=== PATIENT | male | born 1970 | race Caucasian/White ===

== ENCOUNTER → 2017-09-21 10:35 | Day surgery (SDC) | payer MEDICARE, MEDICAID ==
[~2017-09-21 10:35] MED LIST: Diazepam TAB(*) 5 MG ONE; Flumazenil* 0.1 MG/ML 5 ML MDV ONE; Heparin 2 UNITS/ML IVPREMIX* 2,000 ML IV ONE; Heparin(*) 1000 UNIT/ML 10 ML VIAL CATH LAB IV ONE; Iohexol 350 (CONTRAST) 200 ML MDV IV ONE; Lidocaine 1% INJ* 10 MG/ML 30 ML SDV ONE; Midazolam* 1 MG/ML 5 ML VIAL (5 MG) ONE; Naloxone* 0.4 MG/ML 1 ML VIAL ONE; diPHENhydraMINE PO* 25 MG ONE; fentaNYL* 50 MCG/ML 2 ML VIAL (100 MCG VIAL) ONE; nitroGLYCERIN DRIP* 0 MCG/0 ML BTL ONE
--- NOTE | 2017-09-22 00:36 | CATH ---
CC: Dr. Corey Lee; Dr. Jose Aguilera * PERIPHERAL INTERVENTIONAL REPORT: DATE OF PROCEDURE: 09/21/17 - [facility] CATH PRIMARY CARE PHYSICIAN: Jose Aguilera DO COMMUNITY RELATIONS SPECIALIST: Corey Lee DO PROCEDURE: Right common femoral artery access, left subclavian artery angiography, DCB angioplasty, left subclavian artery 7 x 14 mm, Angio-Seal right common femoral artery. HISTORY: A 47-year-old smoker with previous coronary intervention, previous left common iliac artery intervention and 1 year ago, stenting of the left subclavian artery origin, which was occluded with placement of a 7 x 27 balloon expandable stent. He now has restenosis. PROCEDURE ACCESS: Right common femoral artery sheath 6F, diagnostic catheter 6F R4, which was used to image the left subclavian artery, selectively. Injection was performed at the origin of the subclavian. A long [employer] wire was then positioned in the left brachial artery, the 6-Dominican sheath exchange for a 7 x 90 sheath, which was positioned at the left subclavian origin. A 7 x 40 impact DCB was inflated 10 atmosphere for 180 seconds in the left subclavian stent. It protruded in each direction. After angiographic assessment, the right common femoral artery was closed with Angio-Seal. HEMODYNAMICS: Initial BP 110/67, final 111/67. ANGIOGRAPHY: Right common femoral artery. Sheath entry is in segment 2, there is no stenosis. The visualized external iliac has minor irregularity, but no significant stenosis, the origin of the SFA and profunda are patent, the common femoral has no stenosis. Left subclavian artery. It was injected with 6 FR4 catheter at the origin at the previously placed stent, demonstrates fairly diffuse in-stent restenosis up to 70%, does not involve the left vertebral origin. Remainder of the visualized subclavian is normal. After DCB, there is full and complete expansion of the DCB balloon, there is no residual stenosis, no dissection, normal antegrade flow. CONCLUSION: 1. In-stent restenosis, left subclavian artery, excellent angiographic result with 7 mm x 40 mm DCB angioplasty. 2. Successful Angio-Seal right common femoral artery. [id number] #: [id number] [facility]
== END | disposition home or self-care (01) ==
LOC: CHICATH 10:35
PROVIDERS: ATTEND Internal Medicine Cardiovascular Disease
DX: I70.298 Other atherosclerosis of native arteries of extremities, other extremity (principal); I25.10 Atherosclerotic heart disease of native coronary artery without angina pectoris; I25.2 Old myocardial infarction; Z95.5 Presence of coronary angioplasty implant and graft; Z72.0 Tobacco use; I10 Essential (primary) hypertension; E03.9 Hypothyroidism, unspecified; E78.5 Hyperlipidemia, unspecified; R73.9 Hyperglycemia, unspecified; E79.0 Hyperuricemia without signs of inflammatory arthritis and tophaceous disease
CPT/HCPCS: 99156; 99157; A9270-GY; C1760; C1769; C1887; C2623; J1644; J2250; J2310; J3010

== ENCOUNTER 2018-10-01 10:24 | Emergency (ER) | payer MEDICARE, MEDICAID ==
[2018-10-01 10:56] LABS: Influenza A Molecular NEGATIVE (Negative); Influenza B Molecular NEGATIVE (Negative)
[2018-10-01 12:22] LABS: ABS Basophils 0.1 10^3/ul (0-0.2); ABS Eosinophils 0.1 10^3/ul (0-0.6); ABS Lymphocytes 4.1 10^3/ul (1.0-4.8); ABS Monocytes 0.8 10^3/ul (0-0.8); ABS Neutrophils 3.1 10^3/ul (1.5-7.7); ABS Nucleated RBC 0 10^3/ul; Eosinophil % 1.2 %; Hematocrit 43 % (42-52); Hemoglobin 14.9 g/dl (14.0-18.0); Lymphocyte % 50.4 %; Mean Corpuscular HGB Conc 34 g/dl (31-36); Mean Corpuscular Hemoglobin 29 pg (27-31); Mean Corpuscular Volume 84 fL (80-94); Mean Platelet Volume 7.9 fL (7.4-10.4); Nucleated Red Blood Cells % 0.1; Platelet Count 200 10^3/ul (150-450); Red Blood Count 5.15 10^6/ul (4.00-5.40); Red Cell Distribution Width 15 % (10.5-15); White Blood Count 8.1 10^3/ul (3.5-10.8)
[2018-10-01 12:43] LABS: Albumin/Globulin Ratio 1.4 (1-3); BUN/Creatinine Ratio 8.4 (8-20); C Reactive Protein 3.99 mg/L (<8.01); Calcium 9.5 mg/dL (8.6-10.3); EGFR African American 118.7 (>60); EGFR Non-African American 98.1 (>60); Globulin 2.9 g/dL (2-4); Potassium 4.1 mmol/L (3.5-5.0); Total Bilirubin 0.3 mg/dL (0.2-1.0); Total Protein 6.9 g/dL (6.4-8.9)
--- NOTE | 2018-10-01 12:48 | ED ---
HPI Chest Pain - HPI Summary HPI Summary: Patient is a 48 y/o M presenting to ED with complaints of chest pain, SOB, cough , chills and body aches. No fever reported. Cough is intermittently productive. He states that he has had cold Sx a week before 09/13/18, Sx have worsened since onset. Acid Loader recommended he come to ED to rule out PNA. Patient smokes a few cigarettes daily. Hx of PA, thyroid disease is reported. FMHx of HTN, diabetes. Patient is on Plavix. On triage, pain is rated 6/10, nothing is noted to aggravate/alleviate Sx. Home medications and allergies are reviewed. - History of Current Complaint Chief Complaint: EDGeneral Time Seen by Provider: 10/01/18 10:35 Hx Obtained From: Patient Onset/Duration: Started Weeks Ago - cold Sx onset a week before 09/13/18, Still Present, Worse Since Timing: Constant, Lasting Weeks - cold Sx onset a week before 09/13/18 Current Severity: Moderate - 6/10 Pain Intensity: 6 Pain Scale Used: 0-10 Numeric - 6/10 Aggravating Factor(s): Nothing Alleviating Factor(s): Nothing Associated Signs and Symptoms: Positive: Chest Pain, Shortness of Breath, Chills , Cough, Productive Cough, Other: - POSITIVE - BODY ACHES. Negative: Fever - Additional Pertinent History Primary Care Physician: LALO - Allergy/Home Medications Allergies/Adverse Reactions: Allergies Allergy/AdvReac Type Severity Reaction Status Date / Time NSAIDS (Non-Steroidal Allergy Unknown Verified 10/01/18 10:45 Anti-Inflamma Reaction Details omeprazole Allergy GI Upset Verified 10/01/18 10:44 pregabalin [From Lyrica] Allergy Slurred Verified 10/01/18 10:44 Speech PMH/Surg Hx/FS Hx/Imm Hx Endocrine/Hematology History: Reports: Hx Thyroid Disease Denies: Hx Diabetes Cardiovascular History: Reports: Hx Coronary Artery Disease, Other Cardiovascular Problems/Disorders - stent x3, LAD Denies: Hx Hypertension, Hx Pacemaker/ICD, Hx Peripheral Vascular Disease Respiratory History: Reports: Other Respiratory Problems/Disorders - CURRENT SMOKER History: Denies: Hx Dialysis, Hx Renal Disease Musculoskeletal History: Reports: Hx Back Problems, Other Musculoskeletal History - L hip problem Denies: Hx Arthritis, Hx Osteoporosis Sensory History: Reports: Hx Contacts or Glasses - glasses Denies: Hx Hearing Aid Opthamlomology History: Reports: Hx Contacts or Glasses - glasses Neurological History: Reports: Other Neuro Impairments/Disorders - SPINAL CORD SURGERY; degenerative disk disease Denies: Hx Headaches, Hx Seizures, Hx Transient Ischemic Attacks (TIA) Psychiatric History: Denies: Hx Depression, Hx Panic Disorder - Surgical History Surgery Procedure, Year, and Place: CERVICAL FUSION 2010,3 heart stents-[facility] Infectious Disease History: No Infectious Disease History: Denies: Traveled Outside the [place] in Last 30 Days - Family History Known Family History: Positive: Cardiac Disease - PA, Diabetes, Other - CVA Negative: Hypertension - Social History Alcohol Use: Occasionally Hx Substance Use: Yes Substance Use Type: Reports: None Hx Tobacco Use: Yes Smoking Status (MU): Current Every Day Smoker Type: Cigarettes Amount Used/How Often: 5-8 cigarettes/day Have You Smoked in the Last Year: Yes Review of Systems Positive: Chills, Other - POSITIVE - BODY ACHES . Negative: Fever Positive: Chest Pain Positive: Shortness Of Breath, Cough All Other Systems Reviewed And Are Negative: Yes Physical Exam - Summary Physical Exam Summary: VITAL SIGNS: Reviewed. GENERAL: Patient is a well-developed and nourished male who is lying comfortable in the stretcher. Patient is not in any acute respiratory distress. HEAD AND FACE: No signs of trauma. No ecchymosis, hematomas or skull depressions. No sinus tenderness. EYES: PERRLA, EOMI x 2, No injected conjunctiva, no nystagmus. EARS: Hearing grossly intact. Ear canals and tympanic membranes are within normal limits. MOUTH: Oropharynx within normal limits. NECK: Supple, trachea is midline, no adenopathy, no JVD, no carotid bruit, no c- spine tenderness, neck with full ROM. CHEST: Symmetric, no tenderness at palpation LUNGS: Clear to auscultation bilaterally. No wheezing or crackles. CVS: Regular rate and rhythm, S1 and S2 present, no murmurs or gallops appreciated. ABDOMEN: Soft, non-tender. No signs of distention. No rebound no guarding, and no masses palpated. Bowel sounds are normal. EXTREMITIES: FROM in all major joints, no edema, no cyanosis or clubbing. NEURO: Alert and oriented x 3. No acute neurological deficits. Speech is normal and follows commands. SKIN: Dry and warm Triage Information Reviewed: Yes Vital Signs On Initial Exam: Initial Vitals Temp Pulse Resp BP Pulse Ox 99.0 F 87 19 139/86 98 10/01/18 10:26 10/01/18 10:26 10/01/18 10:26 10/01/18 10:26 10/01/18 10:26 Vital Signs Reviewed: Yes Diagnostics - Vital Signs Vital Signs Temp Pulse Resp BP Pulse Ox 10/01/18 10: 99.0 F 87 19 139/86 98 - Laboratory Result Diagrams: 10/01/18 11:22 10/01/18 11:22 Lab Statement: Any lab studies that have been ordered have been reviewed, and results considered in the medical decision making process. - Radiology CXR Radiology Interpretation Completed By: Radiologist Summary of Radiographic Findings: IMPRESSION: No acute cardiopulmonary process. This report was reviewed by ED physician. - EKG 1227 Cardiac Rate: NL - rate of 71 BPM EKG Rhythm: Sinus Rhythm EKG Comparison: No Significant Change Summary of EKG Findings: EKG showed sinus rhythm with rate of 71 BPM, no ST elevation, similar to EKG taken 09/17/16. Re-Evaluation - Re-Evaluation First Eval Re-Evaluation Time: 13:11 Comment: I discussed all the findings and test results with the patient. Patient was instructed to return to the emergency room immediately if any of the symptoms return or worsens. Plan of care was discussed with the patient and understands and agrees. All questions were answered at patient satisfaction. There were no further complaints or concerns. Lung exam before discharge: CTA B/ L. Good air exchange. No wheezing or crackles heard. CVS: S1 and S2 present. No murmurs appreciated. Patient is alert and oriented x 3. Patient is hemodynamically stable. Patient will be discharged home with follow up PCP in the next 2-3 days Chest Pain Course/Dx - Course Assessment/Plan: Patient is a 48 y/o M presenting to ED with complaints of chest pain, SOB, cough, chills and body aches. No fever reported. Cough is intermittently productive. He states that he has had cold Sx a week before 09/13, Sx have worsened since onset. Acid Loader recommended he come to ED to rule out PNA. Patient smokes a few cigarettes daily. Hx of PA, thyroid disease is reported. FMHx of HTN, diabetes. Patient is on Plavix. On triage, pain is rated 6/10, nothing is noted to aggravate/alleviate Sx. Home medications and allergies are reviewed. Blood work without any significant abnormality except for sodium 130 and chloride 98. Troponin is 0.00. CRP is 3.99. Urinalysis is negative for UTI. Chest x-ray impression: No acute pathology. In the ED course the patient has remained stable. I believe that the symptoms are probably secondary to an upper respiratory tract infection. Therefore the patient will be discharged home with a prescription for Robitussin. I discussed all the findings and test results with the patient. Patient was instructed to return to the emergency room immediately if any of the symptoms return or worsens. Plan of care was discussed with the patient and understands and agrees. All questions were answered at patient satisfaction. There were no further complaints or concerns. Lung exam before discharge: CTA B/L. Good air exchange. No wheezing or crackles heard. CVS: S1 and S2 present. No murmurs appreciated. Patient is alert and oriented x 3. Patient is hemodynamically stable. Patient will be discharged home with follow up PCP in the next 2-3 days - Chest Pain Differential Diagnosis/HQI/PQRI: CHF, Chest Wall, GI Disease, Lower Respiratory Infection - Diagnoses Provider Diagnoses: Upper respiratory infection Discharge - Sign-Out/Discharge Documenting (check all that apply): Patient Departure - discharge - Discharge Plan Condition: Stable Disposition: HOME Prescriptions: guaiFENesin/CODIEN 100MG-10MG* [Robitussin AC 100Mg-10Mg*] 10 ml PO TID PRN # 120 ml MDD 30 ml PRN Reason: Cough Patient Education Materials: Upper Respiratory Infection (ED) Referrals: Jose Aguilera DO [Primary Care Provider] - 3 Days Additional Instructions: RETURN TO ED FOR ANY NEW OR WORSENING SYMPTOMS. FOLLOW UP WITH PRIMARY CARE PHYSICIAN IN 2-3 DAYS - Billing Disposition and Condition Condition: STABLE Disposition: Home - Attestation Statements Document Initiated by Scribe: Yes Documenting Scribe: YULISSA FROST Provider For Whom Barbraibe is Documenting (Include Credential): JOY CLINE MD Scribe Attestation: YULISSA Perera , scribed for JOY CLINE MD on 10/01/18 at 1832. Scribe Documentation Reviewed: Yes Provider Attestation: The documentation as recorded by the scribe, YULISSA FROST accurately reflects the service I personally performed and the decisions made by me, JOY CLINE MD Status of Scribfamilia Document: Viewed
[2018-10-01 13:04] LABS: Urine Appearance Clear; Urine Bacteria Absent (Absent); Urine Bilirubin Negative (Negative); Urine Blood 1+ (Negative); Urine Color Straw; Urine Glucose Negative (Negative); Urine Ketones Negative (Negative); Urine Nitrite Negative (Negative); Urine Protein Negative (Negative); Urine Red Blood Cell Trace(0-2/hpf) (Absent); Urine Specific Gravity 1.002 (1.010-1.030); Urine Urobilinogen Negative (Negative); Urine White Blood Cell Absent (Absent)
[2018-10-01 13:31] VITALS: BP 117/77
== END 2018-10-01 13:36 | disposition home or self-care (01) ==
LOC: ED 10:24
DX: J06.9 Acute upper respiratory infection, unspecified (principal); I25.10 Atherosclerotic heart disease of native coronary artery without angina pectoris; Z95.5 Presence of coronary angioplasty implant and graft; Z88.6 Allergy status to analgesic agent; Z88.8 Allergy status to other drugs, medicaments and biological substances; Z82.49 Family history of ischemic heart disease and other diseases of the circulatory system; Z81.1 Family history of alcohol abuse and dependence; Z83.3 Family history of diabetes mellitus; F17.210 Nicotine dependence, cigarettes, uncomplicated
CPT/HCPCS: 36415; 71046; 80053; 81003; 81015; 82550; 83605; 83880; 84484; 85025; 86140; 93005; 99283